=== PATIENT | female | born 1970 | race Caucasian/White ===

== ENCOUNTER 2016-09-29 10:34 | Outpatient (CLI) | payer OTHER | END 2016-09-29 10:35 | disposition home or self-care (01) | DX: I10 Essential (primary) hypertension (principal); Z79.899 Other long term (current) drug therapy ==

== ENCOUNTER 2016-11-08 08:26 | Outpatient (CLI) | payer OTHER | END 2016-11-08 08:27 | disposition home or self-care (01) | DX: E78.2 Mixed hyperlipidemia (principal); E03.9 Hypothyroidism, unspecified; I10 Essential (primary) hypertension ==

== ENCOUNTER 2017-11-14 08:29 | Outpatient (CLI) | payer OTHER ==
[2017-11-14 08:45] LABS: BASOPHILS % (AUTO) 0.5 %; EOSINOPHILS # (AUTO) 0.1 10^3/uL (0.0-0.7); EOSINOPHILS % (AUTO) 2.1 %; LYMPHOCYTES # (AUTO) 1.2 10^3/uL (1.5-3.5); LYMPHOCYTES % (AUTO) 27.8 %; MEAN CORPUSCULAR HEMOGLOBIN 33.4 pg (27.0-31.0); MEAN CORPUSCULAR HGB CONC 34.7 g/dL (32.0-36.0); MEAN CORPUSCULAR VOLUME 96.3 fL (81.0-99.0); MONOCYTES # (AUTO) 0.3 10^3/uL (0.0-1.0); MONOCYTES % (AUTO) 8.3 %; NEUTROPHILS # (AUTO) 2.5 10^3/uL (1.5-6.6); NEUTROPHILS % (AUTO) 61.3 %; PLT - PLATELET COUNT 251 10^3/uL (130-450); RED CELL DISTRIBUTION WIDTH 12.7 % (12.0-15.0); WHITE BLOOD COUNT 4.1 x10^3/uL (4.8-10.8)
[2017-11-14 08:59] LABS: ALBUMIN 4.6 g/dL (3.2-5.5); ALBUMIN/GLOBULIN RATIO 1.6 (1.0-2.2); ALKALINE PHOSPHATASE 47 IU/L (42-121); ALT ALANINE AMINOTRANSFERASE 25 IU/L (10-60); AST ASPARTATE AMINOTRANSFERASE 23 IU/L (10-42); BILIRUBIN,TOTAL 0.8 mg/dL (0.2-1.0); BUN - BLOOD UREA NITROGEN 21 mg/dL (6-20); CALCIUM 9.5 mg/dL (8.5-10.3); CARBON DIOXIDE - CO2 26 mmol/L (21-32); CHLORIDE 97 mmol/L (101-111); CHOL/HDL RATIO 2.8 (<4.4); CHOLESTEROL 178 mg/dL; CREATININE 1.1 mg/dL (0.4-1.0); GFR - MDRD 53 (>89); GLUCOSE 109 mg/dL (70-100); HDL CHOLESTEROL 63 mg/dL; LDL CHOLESTEROL,CALCULATED 100 mg/dL; LDL/HDL RATIO 1.6 (<4.4); SODIUM 136 mmol/L (135-145); TOTAL PROTEIN 7.5 g/dL (6.7-8.2); VLDL CHOLESTEROL 15 mg/dL
[2017-11-14 09:03] LABS: HB2 TOTAL 16.8 g/dL; HEMOGLOBIN A1C 0.54 g/dL; HEMOGLOBIN A1C % 5.1 % (4.6-6.2)
== END 2017-11-14 08:30 | disposition home or self-care (01) ==
LOC: LAB 08:29
PROVIDERS: ATTEND Nurse Practitioner Primary Care
DX: E88.81 Metabolic syndrome and other insulin resistance (principal); R73.01 Impaired fasting glucose; I10 Essential (primary) hypertension; E03.9 Hypothyroidism, unspecified; K76.0 Fatty (change of) liver, not elsewhere classified; E78.5 Hyperlipidemia, unspecified
CPT/HCPCS: 36415; 80053; 80061; 83036; 83721; 84443; 85025

== ENCOUNTER 2017-11-28 10:03 | Outpatient (CLI) | payer OTHER ==
--- NOTE | 2017-11-29 11:43 | Mammography Report ---
DIGITAL BILATERAL SCREENING MAMMOGRAM: 11/28/2017 COMPARISON: Mammogram 04/14/2015. INDICATION: Screening. TECHNIQUE: Routine CC and MLO projections were obtained of the breasts. FINDINGS: The breast parenchyma is heterogeneously dense which may limit the sensitivity of mammography. No dominant mass, architectural distortion, or concerning cluster of microcalcifications are seen. IMPRESSION: 1. BIRADS CATEGORY 1-NEGATIVE. 2. RECOMMEND ANNUAL SCREENING MAMMOGRAM. STANDARD QUALIFYING STATEMENTS: 1. This examination was reviewed with the aid of Computer-Aided Detection (CAD) . 2. A negative or benign imaging report should not delay biopsy if clinically suspicious findings are present. Consider surgical consultation if warranted. More than 5 % of cancers are not identified by imaging. 3. Dense breasts may obscure an underlying neoplasm. TD: 11/29/2017 11:43 GREGORIO
== END 2017-11-28 10:04 | disposition home or self-care (01) ==
LOC: DI 10:03
PROVIDERS: ATTEND Nurse Practitioner Primary Care
DX: Z00.00 Encounter for general adult medical examination without abnormal findings (principal); Z12.31 Encounter for screening mammogram for malignant neoplasm of breast
CPT/HCPCS: 77067

== ENCOUNTER 2017-12-07 16:47 | Outpatient (CLI) | payer OTHER ==
--- NOTE | 2017-12-08 11:19 | Ultrasound Report ---
THYROID ULTRASOUND: 12/07/2017 CLINICAL INDICATION: Goiter. TECHNIQUE: Real-time scanning was performed with public service representative static images obtained. FINDINGS: Ultrasound of the thyroid was performed. The right lobe measures 5.4 x 1.7 x 1.6 cm, and the left lobe measures 5.5 x 1.7 x 1.5 cm. The isthmus measures 3 mm. The thyroid demonstrates heterogeneous echotexture diffusely, without evidence of a focal nodule. No adenopathy is seen. IMPRESSION: HETEROGENEOUS THYROID PARENCHYMA, WITHOUT EVIDENCE OF A FOCAL NODULE. TD: 12/08/2017 11:18
== END 2017-12-07 16:48 | disposition home or self-care (01) ==
LOC: DI 16:47
PROVIDERS: ATTEND Nurse Practitioner Primary Care
DX: E04.9 Nontoxic goiter, unspecified (principal); E03.9 Hypothyroidism, unspecified
CPT/HCPCS: 76536

== ENCOUNTER 2018-01-17 09:45 | Outpatient (CLI) | payer OTHER ==
[2018-01-17 12:23] LABS: THYROID STIMULATING HORMONE 14.7 uIU/mL (0.34-5.60)
[2018-01-17 12:25] LABS: FREE T4 (FREE THYROXINE) 0.86 ng/dL (0.58-1.64)
== END 2018-01-17 09:46 | disposition home or self-care (01) ==
LOC: LAB 09:45
PROVIDERS: ATTEND Internal Medicine
DX: E03.9 Hypothyroidism, unspecified (principal)
CPT/HCPCS: 36415; 84439; 84443; 84481

== ENCOUNTER 2018-03-08 08:24 | Outpatient (CLI) | payer OTHER | END 2018-03-08 08:25 | disposition home or self-care (01) | LOC: LAB 08:24 | PROVIDERS: ATTEND Nurse Practitioner Primary Care | DX: E03.9 Hypothyroidism, unspecified (principal); Z51.81 Encounter for therapeutic drug level monitoring | CPT/HCPCS: 36415; 84443 ==

== ENCOUNTER 2018-05-16 09:02 | Outpatient (CLI) | payer OTHER | END 2018-05-16 09:03 | disposition home or self-care (01) | LOC: LAB 09:02 | PROVIDERS: ATTEND Nurse Practitioner Primary Care | DX: E03.9 Hypothyroidism, unspecified (principal); Z51.81 Encounter for therapeutic drug level monitoring | CPT/HCPCS: 36415; 84443 ==

== ENCOUNTER 2024-04-08 10:56 | Outpatient (CLI) | payer OTHER ==
[2024-04-08 11:40] LABS: CHOL/HDL RATIO 3.3 (<4.4); CHOLESTEROL 211 mg/dL; HDL CHOLESTEROL 63 mg/dL; LDL CHOLESTEROL,CALCULATED 130 mg/dL; LDL/HDL RATIO 2.1 (<4.4); TRIGLYCERIDES 92 mg/dL; VLDL CHOLESTEROL 18 mg/dL
[2024-04-08 11:48] LABS: THYROID STIMULATING HORMONE 0.09 uIU/mL (0.34-5.60)
[2024-04-08 14:02] LABS: ESTIMATED AVERAGE GLUCOSE 97 mg/dL (70-100)
== END 2024-04-08 10:57 | disposition home or self-care (01) ==
LOC: LAB 10:56
DX: E03.9 Hypothyroidism, unspecified (principal); E66.9 Obesity, unspecified; G43.109 Migraine with aura, not intractable, without status migrainosus; R42 Dizziness and giddiness; Z71.2 Person consulting for explanation of examination or test findings
CPT/HCPCS: 36415; 80061; 83036; 83721; 84439; 84443; 84480

== ENCOUNTER 2024-06-06 10:25 | Outpatient (CLI) | payer OTHER ==
[2024-06-06 11:08] LABS: THYROID STIMULATING HORMONE 1.29 uIU/mL (0.34-5.60)
== END 2024-06-06 10:26 | disposition home or self-care (01) ==
LOC: LAB 10:25
PROVIDERS: ATTEND Nurse Practitioner Family
DX: Z71.2 Person consulting for explanation of examination or test findings (principal); R42 Dizziness and giddiness; G43.109 Migraine with aura, not intractable, without status migrainosus; E66.9 Obesity, unspecified; E03.9 Hypothyroidism, unspecified
CPT/HCPCS: 36415; 84439; 84443; 84480